=== PATIENT | male | born 1960 | race Two or more races ===

== ENCOUNTER 2024-04-07 09:30 | Inpatient (IN) | payer OTHER ==
[~2024-04-07] VITALS: Ht 172.7 cm; Wt 76.2 kg
[2024-04-07 09:58] VITALS: BP 143/78
[2024-04-07] MEDS ORDERED: ZESTRIL20 MG PO (09:59)
[2024-04-07] MEDS ORDERED: VYTORIN 10-401 EACH PO (09:59)
[2024-04-07] MEDS ORDERED: CLONAZEPAM1 M1 PO (10:00)
[2024-04-07] MEDS ORDERED: LAMICTAL5 MG PO (10:00)
[2024-04-07 10:09] LABS: PH,URINE 7.5 (5.0-8.0); URINE BILIRRUBIN Negative (NEGATIVE); URINE BLOOD Negative; URINE COLOR Yellow; URINE GLUCOSE Negative (NEGATIVE); URINE KETONE Negative (NEGATIVE); URINE LEUKOCYTE Negative; URINE NITRATE Negative; URINE PROTEIN Negative (NEGATIVE); URINE UROBILINOGEN 0.2 E.U./dl
[2024-04-07 10:27] LABS: INR 1.15; PARTIAL THROMBOPLASTIN TIME 29.2 SECONDS (22.0-34.0); PROTHROMBIN TIME 12.4 SECONDS (9.0-11.5)
[2024-04-07 10:32] LABS: URINE APPEARANCE CLEAR; URINE BACTERIA 1.2 uL (0.0-1933); URINE EPITHELIAL CELLS 0.1 uL (0.0-38.8); URINE RBC 0.5 uL (0.0-20.8); URINE WBC 0 uL (0.0-23.2)
[2024-04-07 12:54] LABS: RH NEGATIVE
[2024-04-12] MEDS ORDERED: HEMOSTATIC MATRIX 1 KIT KIT TOP ONE (13:09)
[2024-04-12] MEDS ORDERED: ENOXAPARIN SODIUM 40 MG/0.4 ML SYRINGE SUBCUTANEO ONE (13:10)
[2024-04-12] MEDS ORDERED: CEFAZOLIN SODIUM 1,000 MG VIAL ONE (13:10)
[2024-04-12] MEDS ORDERED: BUPIVACAINE HCL/MPF 0.5% 30ML VIAL ONE (14:14)
[2024-04-12] MEDS ORDERED: SURGIFLO APPLICATOR 1 EACH APPL TOP ONE (17:39)
[2024-04-12] MEDS ORDERED: OxyCODONE HCL/APAP UD (PERCOCET) PO PRN (19:15)
[2024-04-12] MEDS ORDERED: ONDANSETRON HCL 2 MG/ML VIAL IV PRN (19:15)
[2024-04-12] MEDS ORDERED: MORPHINE SULFATE 4 MG/ML CARTRIDGE IV PRN (19:15)
[2024-04-12] MEDS ORDERED: RINGERS SOLUTION,LACTATED 1,000 ML IV SCH (19:15)
[2024-04-12] MEDS ORDERED: MORPHINE SULFATE 4 MG/ML VIAL IV ONE (20:10)
[2024-04-12] MEDS ORDERED: FAMOTIDINE/PF 20 MG/2 ML VIAL ONE (20:43)
[2024-04-12] MEDS ORDERED: FAMOTIDINE/PF 20 MG/2 ML VIAL IV SCH (21:00)
[2024-04-12] MEDS ORDERED: LORazepam 1 MG TABLET PO SCH (21:00)
[2024-04-12 21:50] VITALS: BP 142/70; O2SAT 95
[2024-04-13] VITALS: BP 125/76; O2SAT 98
[2024-04-13] MEDS ORDERED: CEFAZOLIN SODIUM 1,000 MG VIAL IV SCH
[2024-04-13] MEDS ORDERED: GABAPENTIN 300 MG CAPSULE PO SCH (01:00)
[2024-04-13 06:44] LABS: HEMATOCRIT 40.1 % (39.0-48.0); HEMOGLOBIN 13.5 g/dL (13-16.00); MEAN CORPUSCULAR HGB CONC 33.7 g/dl (32.0-36.0); PLATELET COUNT 145 K/uL (150-450); RED BLOOD COUNT 4.09 M/uL (4.00-6.00); RED CELL DISTRIBUTION WIDTH 13.4 % (11.5-14.5)
[2024-04-13 07:16] LABS: ALBUMIN 3.1 gm/dL (3.4-5.0); CALCIUM 8.3 mg/dL (8.5-10.1); CREATININE SERUM 0.99 mg/dL (0.70-1.30); GFR 75.87; PHOSPHOROUS 4.6 mg/dL (2.5-4.9); POTASSIUM 4.24 mEq/L (3.5-5.1)
[2024-04-13 08:22] VITALS: BP 101/56; O2SAT 99
[2024-04-13] MEDS ORDERED: ENOXAPARIN SODIUM 40 MG/0.4 ML SYRINGE SUBCUTANEO SCH (09:00)
[2024-04-13] MEDS ORDERED: LISINOPRIL 20 MG TABLET PO SCH (09:00)
[2024-04-13] MEDS ORDERED: POLYETHYLENE GLYCOL 3350 17 GM BLIST.PACK PO SCH (17:00)
== END 2024-04-13 10:37 | disposition home or self-care (01) | DRG 708 ==
LOC: O/R 04-12 05:48 → SURH 04-12 09:30
PROVIDERS: ADMIT Urology; ATTEND Urology
PROC: 8E0W4CZ Robotic Assisted Procedure of Trunk Region, Percutaneous Endoscopic Approach (ICD-10-PCS; 2024-04-12)
PROC: 0VT04ZZ Resection of Prostate, Percutaneous Endoscopic Approach (ICD-10-PCS; principal; 2024-04-12 13:00)
DX: C61 Malignant neoplasm of prostate (principal)
CPT/HCPCS: 55866; S2900